=== PATIENT | female | born 1990 | race Caucasian/White ===

== ENCOUNTER 2019-02-03 05:22 | Inpatient (IN) | payer OTHER ==
[2019-02-03 05:53] VITALS: BMI 26.7
--- NOTE | 2019-02-03 06:16 | PDOC.LDHP ---
Labor and Delivery H&P Chief complaint: contractions HPI: 28 yo @ 40.3 weeks presents for painful contractions since 3 am approx 5-6 minutes apart. She denies LOF, bleeding and discharge. Pos movement. No CP SOB, NVDC. Some pelvic pressure. Current gestational age (weeks): 40 (3) Due date: 01/31/19 Grav: 3 Para: 2 Current complications: none Current medications: pre-scott vitamins Previous surgical history: other (vaginal cyst removal) Allergies/Adverse Reactions: Allergies Allergy/AdvReac Type Severity Reaction Status Date / Time No Known Allergies Allergy Verified 02/03/19 05:55 Social history: none - Physical Exam Vital signs reviewed and normal: yes General: NAD Heart: RRR Lungs: CTAB Abdomen: NTTP Extremeties: no edema FHT: category 1 (130s pos accels no late or variable decels) - OB Labs Blood type: unknown RH: unknown Antibody Screen: unknown HIV: unknown RPR: unknown HEPSAg: unknown 1 hour GCT: unknown GBS: unknown - Plan Plan: observation in L&D -: 1) TIUP: - latent labor - cervical check 40, 75, -1, cat 1 strip ctx q5min - recheck 2 hours, pt to ambulate/ po hydrate prn - likely admit for delivery, but will reassess in 2 hours - vertex presentation Addendum - Attending - Attending Attestation Date/Time: 02/03/19 [id number] I personally evaluated the patient and discussed the management with Dr. Chavira. I agree with the History, Examination, Assessment and Plan documented above.
[2019-02-03] MEDS ORDERED: Ibuprofen 800 MG TAB PO PRN (08:07)
[2019-02-03] MEDS ORDERED: HYDROcodone/Acetaminophen 5/325 mg Tablet PO PRN ×4 (08:07→15:33)
[2019-02-03] MEDS ORDERED: Lidocaine 1% (PF) 30 ML VIAL SC PRN (08:07)
[2019-02-03] MEDS ORDERED: Ondansetron PF 4 MG/2 ML Vial IVP PRN ×2 (08:07→09:03)
[2019-02-03] MEDS ORDERED: NS / Oxytocin 40 units/1000ml 1,000 ML IV PRN (08:07)
[2019-02-03] MEDS ORDERED: Promethazine HCl 25 MG/ML VIAL IM PRN ×2 (08:07→09:03)
[2019-02-03 08:24] LABS: Hemoglobin 10.2 g/dL (12.0-16.0); Mean Corpuscular HGB CONC 33.2 g/dL (32.0-36.0); Mean Corpuscular Hemoglobin 25.1 pg (27.0-31.0); Mean Corpuscular Volume 75.5 fL (78.0-98.0); Mean Platelet Volume 9.8 fL (7.4-10.4); Platelet Count 245 thou/uL (130-400); RBC Distribution Width 14.9 % (11.5-14.5); Red Blood Cell (RBC) Count 4.07 mill/uL (4.20-5.40); White Blood Cell (WBC) Count 12.5 thou/uL (4.8-10.8)
[2019-02-03] MEDS: Lactated Ringer's 1,000 ML IV SCH ×2 (08:30→11:13)
[2019-02-03 08:54] LABS: HBSAg Index 0.51 S/CO (0-0.99); Hep B Surf Ag Non-Reactive S/CO (NonReactive); Syphilis Antibody Nonreactive (Nonreactive); Syphilis Antibody Index 0.07 S/CO (<1.00 Non-Reactive)
[2019-02-03] MEDS ORDERED: Acetaminophen 325 MG TAB PO PRN (09:03)
[2019-02-03] MEDS ORDERED: diphenhydrAMINE 50 MG/ML VIAL IVP PRN (09:03)
[2019-02-03] MEDS ORDERED: ePHEDrine/0.9% NaCl/PF SYRINGE 50 mg/10 ml SLOW IVP PRN (09:03)
[2019-02-03] MEDS ORDERED: Naloxone HCl 0.4 mg/ml Vial IVP PRN ×2 (09:03)
[2019-02-03] MEDS ORDERED: Eucerin (Mineral Oil/Petrolatum,White) 30 gm Jar TOP PRN (09:03)
[2019-02-03] MEDS ORDERED: Lactated Ringer's 500 ML IV PRN (09:03)
[2019-02-03] MEDS ORDERED: Communication Order-Pharmacy FS SCH (09:15)
[2019-02-03] MEDS ORDERED: Fentanyl 4 mcg/Bupivacaine 0.1% Cassette 100 ML EPIDURAL SCH (09:15)
[2019-02-03] MEDS: Fentanyl 4 mcg/Bup 0.1% Cadd 100 ML ONE ×2 (11:13→11:17)
[2019-02-03] MEDS ORDERED: NS w/ Oxytocin 10 units 500 ML ONE (11:31)
[2019-02-03] MEDS ORDERED: NS w/ Oxytocin 10 units 500 ML IVPB SCH (12:00)
--- NOTE | 2019-02-03 14:49 | PDOC.OPDEL ---
OB Operative/Delivery Note Delivery Dr/Surgeon: Rafiq Hinkle CNM Pre-Delivery Diagnosis: active labor Procedure/Post Delivery Dx: spontaneous vaginal delivery Weeks gestation: 40 (3 days) Anesthesia: epidural - Findings A Sex: female Weight: 8 lb 9 oz - 1 min: 9 - 5 min: 9 - Additional Findings/Plan Placenta delivered: spontaneous Repaired Obstetrical Laceration: 1st degree Estimated blood loss: 540ml QBL Post delivery plan: routine recovery
[2019-02-03] MEDS ORDERED: Benzocaine-Menthol 82.5 ML CAN TOP PRN (15:33)
[2019-02-03] MEDS ORDERED: Milk Of Magnesia 30 ML UDCUP PO PRN (15:33)
[2019-02-03] MEDS ORDERED: NS / Oxytocin 40 units/1000ml 1,000 ML IV SCH (15:33)
[2019-02-03] MEDS ORDERED: Methylergonovine 0.2 MG/ML VIAL IM PRN (15:33)
[2019-02-03] MEDS ORDERED: Bisacodyl 10 MG SUPP PR PRN (15:33)
[2019-02-03] MEDS: Ferrous Sulfate 325 MG TAB PO SCH (16:39)
[2019-02-03] MEDS: Docusate Calcium (SURFAK) 240 MG CAP PO SCH (21:28)
[2019-02-03] MEDS: Ibuprofen 800 MG TAB PO SCH (21:29)
[2019-02-03] MEDS ORDERED: Lanolin Ointment 7 GM TUBE TOP PRN (22:34)
[2019-02-04] MEDS: Ibuprofen 800 MG TAB PO SCH ×2 (05:17→13:35)
[2019-02-04 06:49] LABS: Hemoglobin 7.9 g/dL (12.0-16.0); Mean Corpuscular HGB CONC 32.5 g/dL (32.0-36.0); Mean Corpuscular Hemoglobin 25.4 pg (27.0-31.0); Mean Corpuscular Volume 78.2 fL (78.0-98.0); Mean Platelet Volume 9.2 fL (7.4-10.4); Platelet Count 181 thou/uL (130-400); RBC Distribution Width 14.6 % (11.5-14.5); Red Blood Cell (RBC) Count 3.09 mill/uL (4.20-5.40); White Blood Cell (WBC) Count 11.9 thou/uL (4.8-10.8)
[2019-02-04] MEDS ORDERED: Prenatal Vitamin 1 TAB PO SCH (09:00)
[2019-02-04] MEDS ORDERED: Adacel (T-DAP) 0.5 ML SYRINGE IM ONE (09:00)
[2019-02-04] MEDS: Ferrous Sulfate 325 MG TAB PO SCH (09:13)
[2019-02-04] MEDS: Docusate Calcium (SURFAK) 240 MG CAP PO SCH (09:13)
[2019-02-04] MEDS ORDERED: Lidocaine 2% Jelly 5 ML TUBE ONE (10:00)
[2019-02-04 11:43] VITALS: BP 110/74; TEMP 98.2
--- NOTE | 2019-02-04 14:29 | PDOC.PP ---
Post Progress Note Post Day #: 1 Subjective: doing well. Having even less bleeding than with previous deliveries. Only taking Motrin for cramping pains after . She would like to go home if infant is ok to discharge. PO intake tolerated: yes Flatus: yes Ambulation: yes Vital Signs (12 hours) Temp Pulse Resp BP Pulse Ox 02/04/19 11:35 98.2 F 67 17 110/74 02/04/19 07:15 94 L 02/04/19 05:15 98.0 F 71 16 114/81 Weight Weight 171 lb - Physical Examination General: NAD Cardiovascular: no m/r/g, RRR Respiratory: clear to auscultation bilaterally Abdominal: + bowel sounds, lochia (minimal) Extremities: negative homans (B) Skin: no rash Perineum: minimal edema. Neurological: no gross focal deficits Psychiatric: A&Ox3, normal affect Result Diagrams: 02/04/19 06:37 Additional Labs: Post Labs Blood Type O POSITIVE 02/03/19 09:17 Hep Bs Antigen Non-Reactive S/CO (NonReactive) 02/03/19 08:07 (1) (spontaneous vaginal delivery) Code(s): O80 - ENCOUNTER FOR FULL-TERM UNCOMPLICATED DELIVERY Status: Acute (2) Anemia Code(s): D64.9 - ANEMIA, UNSPECIFIED Status: Acute - Assessment/Plan A: g3 now p3 sp at 40 weeks and 3 day, NML exam with the exception of asymptomatic iron deficient anemia P: Discharge home today. Continue iron BID and PNV. 6 week visit or PRN as indicated
== END 2019-02-04 17:30 | disposition home or self-care (01) | DRG 807 ==
LOC: L&D/OP 05:22 → L&D 08:14 → 3SW 17:10
PROVIDERS: ADMIT Obstetrics & Gynecology; ATTEND Obstetrics & Gynecology
PROC: 10E0XZZ Delivery of Products of Conception, External Approach (ICD-10-PCS; principal; 2019-02-03)
PROC: 0HQ9XZZ Repair Perineum Skin, External Approach (ICD-10-PCS; 2019-02-03)
DX: O48.0 Post-term pregnancy (principal); Z37.0 Single live birth; Z3A.40 40 weeks gestation of pregnancy; O70.0 First degree perineal laceration during delivery; O99.02 Anemia complicating childbirth; D50.9 Iron deficiency anemia, unspecified
CPT/HCPCS: 36415; 51702; 85027; 86780; 86850; 86900; 86901; 87340; 99285; J2590